=== PATIENT | male | born 1990 | race American Indian/Alaskan Native ===

== ENCOUNTER 2017-12-22 06:47 | Day surgery (SDC) | payer OTHER ==
--- NOTE | 2017-12-22 12:43 | Anesthesia Day of Surgery ---
Anesthesia Day of Surgery - Day of Surgery Patient Examined: Yes Patient H&P Reviewed: Yes Patient is NPO: Yes
--- NOTE | 2017-12-22 12:43 | Anesthesia Consultation ---
Anesthesia Consult and Med Hx Date of service: 12/22/17 - Airway Anesthetic Teeth Evaluation: Good ROM Head & Neck: Adequate Mental/Hyoid Distance: Adequate Mallampati Class: Class II Intubation Access Assessment: Probably Good - Pulmonary Exam CTA: Yes - Cardiac Exam Cardiac Exam: RRR - Pre-Operative Health Status ASA Pre-Surgery Classification: ASA2 Proposed Anesthetic Plan: General - Pulmonary Hx Smoking: Yes (THC about every other day) SOB: No - Central Nervous System Hx Back Pain: Yes (described muscular back ache) Hx Psychiatric Problems: No - Hematic Hx Sickle Cell Disease: Yes (FAMILY H/O TRAIT) - Other Systems Hx Alcohol Use: No Hx Substance Use: Yes (THC) Hx Cancer: No
[2017-12-22] MEDS ORDERED: ZOFRAN IV PRN (12:44)
[2017-12-22] MEDS ORDERED: ANCEF/STERILE WATER 2 GM/20 ML IV NR (12:54)
[2017-12-22] MEDS ORDERED: VERSED IV NR (13:00)
[2017-12-22] MEDS ORDERED: PEPCID IV NR (13:00)
[2017-12-22] MEDS ORDERED: NACL 0.9% 1000 ML 1,000 ML IV SCH (13:00)
[2017-12-22] MEDS ORDERED: XYLOCAINE MPF 2% ONE (13:06)
[2017-12-22] MEDS ORDERED: ZEMURON IV ONE (13:06)
[2017-12-22] MEDS ORDERED: DILAUDID ONE (13:06)
[2017-12-22] MEDS ORDERED: DIPRIVAN 10 MG/ML IV ONE (13:06)
[2017-12-22] MEDS ORDERED: QUELICIN ONE (13:18)
[2017-12-22] MEDS ORDERED: MARCAINE 0.5% 30 ML INFILTRATI ONE (13:47)
[2017-12-22] MEDS ORDERED: ZOFRAN ONE (14:05)
[2017-12-22] MEDS ORDERED: NACL 0.9% IR ONE (14:06)
[2017-12-22] MEDS ORDERED: MARCAINE 0.5% INFILTRATI ONE (14:06)
--- NOTE | 2017-12-22 14:29 | Short Stay Summary ---
Short Stay Documentation Date of service: 12/22/17 Narrative H&P: see dictated H&P - Allergies and Medications Current Medications: Allergies No Known Allergies Allergy (Verified 12/15/17 16:58) Home Medications Medication Instructions Recorded Confirmed Last Taken Type No Known Home Medications [No 12/15/17 12/15/17 Unknown History Reported Home Medications] Active Medications Cefazolin Sodium (Ancef/Sterile Water 2 Gm/20 Ml) 2 gm IV PREOP NR Stop: 12/22/17 23:00 Famotidine (Pepcid) 20 mg IV PREOP NR Stop: 12/22/17 23:59 Last Admin: 12/22/17 12:57 Dose: 20 mg Hydromorphone HCl (Dilaudid) 0.5 mg IV Q10MIN PRN PRN Reason: Pain , Severe (7-10) Sodium Chloride (Nacl 0.9% 1000 Ml) 1,000 mls @ 42 mls/hr IV DIRECT EMI Last Admin: 12/22/17 12:54 Dose: 42 mls/hr Midazolam HCl (Versed) 2 mg IV PREOP NR Stop: 12/22/17 23:59 Last Admin: 12/22/17 12:54 Dose: 2 mg Ondansetron HCl (Zofran) 4 mg IV ONCE PRN PRN Reason: Nausea And Vomiting - Brief post op/procedure progress note Date of procedure: 12/22/17 Pre-op diagnosis: soft tissue mass neck and back Post-op diagnosis: same Procedure: excision of STM neck. Exploration of lower back Anesthesia: GETA Findings: 6cm neck mass. Unable to locate back mass Surgeon: CONSTANZA BELLO Estimated blood loss: none Pathology: list (stm neck) Specimen disposition: to lab Condition: stable - Disposition Condition at discharge: Stable Disposition: [id number] TO HOME OR SELFCARE Short Stay Discharge Plan Activity: advance as tolerated Weight Bearing Status: Weight Bear as Tolerated Diet: regular Wound: open to air Follow up with: CONSTANZA BELLO MD [Staff Physician] - 7 Days
[2017-12-22] MEDS: DILAUDID IV PRN ×2 (14:45→15:07)
[2017-12-22 15:38] VITALS: BP 115/64
[2017-12-22] MEDS ORDERED: PERCOCET 5/325 PO ONE (15:51)
--- NOTE | 2017-12-23 01:45 | Operative Report ---
PREOPERATIVE DIAGNOSIS: Soft tissue mass, neck and back. POSTOPERATIVE DIAGNOSIS: Soft tissue mass, neck. PROCEDURE: Excision of soft tissue mass in neck and local exploration of back. SURGEON: Sebastian Valencia M.D. ANESTHESIA: General anesthesia. ESTIMATED BLOOD LOSS: Minimal. COMPLICATIONS: None. DRAINS: None. SPECIMENS: Neck mass, approximately 6 cm. CONDITION: The patient tolerated the procedure well. FINDINGS: A 6 cm neck soft tissue mass. A soft tissue mass in the back, probably is submuscular and unable to locate at this point, I aborted this part to do further diagnostic workup. DESCRIPTION OF PROCEDURE: The patient taken to the OR and placed on the operating table. Once general anesthesia was obtained, he was placed in prone position. Neck and back were prepped and draped. The area was previously marked in the preop area. A transverse incision made along the neck mass approximately 5 cm length. The incision was taken through the subcutaneous tissue. The neck mass was dissected from surrounding soft tissues of fibrofatty in appearance consistent with lipoma. It was multilobulated and completely excised. No other loculations were noted. It was excised with electrocautery. After adequate hemostasis, the subcutaneous tissue was approximated with 2-0 Vicryl and the skin was approximated with subcuticular technique and Dermabond was placed on incision. We subsequently went to the lower back mass, made a transverse incision approximately 5 cm in length. The incision was taken through subcutaneous tissue, unable to initially locate the mass. We did a muscle-sparing incision to dissect through the first layer of muscle, still could not isolate the mass and the mass was found to be possibly deeper due to further exploration, I could not find it and at this point, I elected the patient prior needs an MRI to further localize this lesion before attempting to further dissect in that space. I aborted this procedure at this point. The subcutaneous tissues approximated with 3-0 Vicryl and skin was approximated in subcuticular technique. Dermabond was placed on incision. The patient tolerated the procedure well. JOB# [id number] LIZ/AVE
== END 2017-12-22 16:45 | disposition home or self-care (01) ==
LOC: OR 06:47
PROVIDERS: ATTEND Surgery
DX: D17.0 Benign lipomatous neoplasm of skin and subcutaneous tissue of head, face and neck (principal); D57.1 Sickle-cell disease without crisis; F17.200 Nicotine dependence, unspecified, uncomplicated
CPT/HCPCS: 21552; 21930; 88304; J0330; J0690; J1170; J2250; J2405; J2704; J7030